=== PATIENT | female | born 2000 | race African-American/Black ===

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

== ENCOUNTER 2023-07-28 18:09 | Inpatient (IN) | payer SELFPAY ==
[2023-07-28] MEDS ORDERED: Sodium Chloride 0.9% 10 ML Syringe FLUSH PRN (19:33)
[2023-07-28] MEDS ORDERED: Tranexamic Acid IN NACL,ISO-OS 1,000 MG in Premix Bag 1 BAG IV PRN ×2 (19:33)
[2023-07-28] MEDS ORDERED: Misoprostol 200 MCG Tab PO PRN (19:33)
[2023-07-28] MEDS ORDERED: Sodium Chloride 0.9% 20 ML SDV IV PRN (19:33)
[2023-07-28] MEDS ORDERED: Lidocaine 1% 50 ML MDV INJECT PRN (19:33)
[2023-07-28] MEDS ORDERED: Methylergonovine 0.2 MG/1 ML Amp IM PRN ×2 (19:33→23:55)
[2023-07-28] MEDS ORDERED: Ondansetron 4 MG/2 ML SDV IVPUSH PRN ×4 (19:33→23:55)
[2023-07-28] MEDS ORDERED: Carboprost Tromethamine 250 MCG/1 mL Vial IM PRN (19:33)
[2023-07-28] MEDS ORDERED: Sodium Chloride 0.9% 2.5 ML Syringe FLUSH PRN (19:33)
[2023-07-28] MEDS ORDERED: Water For Irrigation,Sterile 1,000 ML Container IRR PRN (19:33)
[2023-07-28] MEDS ORDERED: Butorphanol 1 MG/ML SDV IVPUSH PRN (19:33)
[2023-07-28] MEDS ORDERED: Oxytocin/0.9 % Sodium Chloride 30 UNIT/500 ML BAG IV SCH (19:45)
[2023-07-28] MEDS: Lactated Ringers 1,000 ML IV SCH ×2 (19:54→21:36)
[2023-07-28 20:02] LABS: HEMATOCRIT 28.5 % (37.0-47.0); HEMOGLOBIN 9.3 g/dL (12.0-16.0); MEAN CORPUSCULAR HEMOGLOBIN 27.9 pg (28.0-32.0); MEAN CORPUSCULAR HGB CONC 32.6 g/dL (32.0-36.0); MEAN CORPUSCULAR VOLUME 85.6 fL (83.0-99.0); MEAN PLATELET VOLUME 9.8 fL (9.4-12.3); PLATELET COUNT,PLT 254 K/uL (150-400); RED BLOOD CELL COUNT 3.33 M/uL (4.10-5.30)
[2023-07-28] MEDS ORDERED: Bupivacaine 0.5% 10 ML SDV ONE ×4 (20:41→21:44)
[2023-07-28] MEDS ORDERED: Ropivacaine HCl/PF 200 ML ONE (20:41)
[2023-07-28] MEDS ORDERED: Phenylephrine HCl 0.5 MG/5 ML AMP ONE (20:41)
[2023-07-28] MEDS ORDERED: Phenylephrine HCl 0.5 MG/5 ML AMP IVPUSH PRN (21:05)
[2023-07-28] MEDS ORDERED: ePHEDrine 50 MG/ML SDV IVPUSH PRN ×3 (21:05→23:21)
[2023-07-28] MEDS ORDERED: Ropivacaine HCl/PF 400 MG in Premix Bag 1 BAG EPIDUR SCH (21:15)
[2023-07-28] MEDS ORDERED: Citric Acid/Sodium Citrate Solution 30 ML Cup PO ONE (21:37)
[2023-07-28] MEDS ORDERED: ceFAZolin 2 GM in Sodium Chloride 0.9% 50 ML IV ONE (21:37)
[2023-07-28] MEDS ORDERED: Ketorolac 30 MG/ML SDV ONE (21:39)
[2023-07-28] MEDS ORDERED: Bupivacaine 0.25% 30 ML SDV ONE (21:39)
[2023-07-28] MEDS ORDERED: Oxytocin 10 Units/1 ML SDV ONE (21:39)
[2023-07-28] MEDS ORDERED: fentaNYL 100 MCG/2 ML SDV ONE ×2 (21:39→22:25)
[2023-07-28] MEDS ORDERED: Ondansetron 4 MG/2 ML SDV ONE (21:39)
[2023-07-28] MEDS ORDERED: ceFAZolin 1 GM Vial ONE (21:39)
[2023-07-28] MEDS ORDERED: Ropivacaine 0.5% 5 MG/ML 30 ML SDV ONE (21:39)
[2023-07-28] MEDS ORDERED: EPINEPHrine 1 MG/1 ML Amp ONE ×2 (21:40→21:44)
[2023-07-28] MEDS ORDERED: Morphine PF 10 MG/10 ML SDV ONE (21:40)
[2023-07-28] MEDS ORDERED: Phenylephrine 1% 10 MG/ML SDV ONE (21:46)
[2023-07-28 22:02] LABS: APPEARANCE,URINE CLEAR; BILIRUBIN,URINE NEGATIVE (NEGATIVE); GLUCOSE,URINE NEGATIVE (NEGATIVE); KETONES,URINE NEGATIVE (NEGATIVE); LEUKOCYTE ESTERASE,URINE NEGATIVE (NEGATIVE); NITRITE,URINE POSITIVE (NEGATIVE); OCCULT BLOOD,URINE NEGATIVE (NEGATIVE); PROTEIN,URINE NEGATIVE (NEGATIVE); UROBILINOGEN,URINE 0.2 EU/dL (<2.0)
[2023-07-28 22:03] LABS: COLOR,URINE YELLOW
[2023-07-28 22:12] LABS: AMPHETAMINES SCREEN, URINE NEGATIVE (CUTOFF=500); BARBITURATE SCREEN,URINE NEGATIVE (CUTOFF=200); BENZODIAZEPINES SCREEN,URINE NEGATIVE (CUTOFF=150); BUPRENORPHINE SCREEN,URINE NEGATIVE (CUTOFF=10); METHADONE SCREEN, URINE NEGATIVE (CUTOFF=200); METHAMPHETAMINES SCREEN, URINE NEGATIVE (CUTOFF=500); OXYCODONE SCREEN,URINE NEGATIVE (CUT0FF=100); PCP SCREEN,URINE NEGATIVE (CUTOFF=25); THC SCREEN,URINE 20 NG/ML NEGATIVE (CUTOFF=50)
[2023-07-28] MEDS ORDERED: Tranexamic Acid 1,000 MG/10 ML Vial ONE (22:36)
[2023-07-28] MEDS ORDERED: Ferric Subsulfate Topical Soln 8 GM (8 ML) Bottle ONE (23:13)
[2023-07-28] MEDS ORDERED: droPERidol 5 MG/2 ML SDV IVPUSH PRN (23:21)
[2023-07-28] MEDS ORDERED: fentaNYL 50 MCG/ML SDV IVPUSH PRN (23:21)
[2023-07-28] MEDS ORDERED: HYDROmorphone 1 MG/ML Syringe IVPUSH PRN (23:21)
[2023-07-28] MEDS ORDERED: Albuterol 0.083% 2.5 MG/3 ML Neb Soln NEB PRN (23:21)
[2023-07-28] MEDS ORDERED: Metoclopramide 10 MG/2 ML SDV IVPUSH PRN (23:21)
[2023-07-28] MEDS ORDERED: fentaNYL 100 MCG/2 ML SDV IVPUSH PRN (23:21)
[2023-07-28] MEDS ORDERED: Morphine 2 MG/ML SYRINGE IVPUSH PRN (23:21)
[2023-07-28] MEDS ORDERED: diphenhydrAMINE 50 MG/ML SDV IVPUSH PRN ×2 (23:21→23:55)
[2023-07-28] MEDS ORDERED: Naloxone 0.4 MG/ML SDV IVPUSH PRN (23:21)
[2023-07-28] MEDS ORDERED: Lactated Ringers 1,000 ML IV SCH (23:45)
[2023-07-28] MEDS ORDERED: Misoprostol 200 MCG Tab RECTAL PRN (23:55)
[2023-07-28] MEDS ORDERED: Acetaminophen/oxyCODONE 325-5 MG Tab PO PRN (23:55)
[2023-07-28] MEDS ORDERED: Lanolin 100% Cream 7 GM Tube TOP PRN (23:55)
[2023-07-28] MEDS ORDERED: Bisacodyl 10 MG Supp RECTAL PRN (23:55)
[2023-07-28] MEDS ORDERED: Oxytocin 10 Units/1 ML SDV IM PRN (23:55)
[2023-07-29 00:03] LABS: PH,UMBILICAL ARTERIAL 7.201 (7.18-7.38); PH,UMBILICAL VENOUS 7.27 (7.25-7.45)
[2023-07-29] MEDS: Acetaminophen 1,000 MG in Premix Bag 1 BAG IV SCH ×4 (00:15→21:40)
[2023-07-29 06:03] LABS: HEMATOCRIT 26.5 % (37.0-47.0); HEMOGLOBIN 8.6 g/dL (12.0-16.0)
[2023-07-29] MEDS: Docusate Sodium 100 MG Cap PO SCH ×2 (09:23→21:37)
[2023-07-29] MEDS: Nitrofurantoin Monohydrate/Macrocrystalline 100 MG Cap PO SCH ×2 (09:23→21:37)
[2023-07-29] MEDS ORDERED: Sodium Ferric Gluconate Cmplex 125 MG in Sodium Chloride 0.9% 100 ML IV ONE (10:30)
[2023-07-29] MEDS: Ibuprofen 800 MG Tab PO PRN (11:26)
[2023-07-29 16:12] LABS: GROUP B STREP BY PCR NEGATIVE (NEGATIVE)
[2023-07-30] MEDS: Ibuprofen 800 MG Tab PO PRN ×2 (03:10→19:45)
[2023-07-30] MEDS: Acetaminophen/oxyCODONE 325-5 MG Tab PO PRN ×3 (04:19→17:49)
[2023-07-30] MEDS: Docusate Sodium 100 MG Cap PO SCH ×2 (10:06→21:01)
[2023-07-30] MEDS: Nitrofurantoin Monohydrate/Macrocrystalline 100 MG Cap PO SCH ×2 (10:07→21:01)
[2023-07-30] MEDS: Ferrous Sulfate 325 MG Tab PO SCH (17:51)
[2023-07-30] MEDS ORDERED: HYDROmorphone 2 MG/ML Syringe IVPUSH PRN (18:08)
[2023-07-31] MEDS: Acetaminophen/oxyCODONE 325-5 MG Tab PO PRN ×3 (03:13→16:07)
[2023-07-31] MEDS: Ibuprofen 800 MG Tab PO PRN (03:56)
[2023-07-31] MEDS: Docusate Sodium 100 MG Cap PO SCH (08:25)
[2023-07-31] MEDS: Ferrous Sulfate 325 MG Tab PO SCH (08:25)
[2023-07-31] MEDS: Nitrofurantoin Monohydrate/Macrocrystalline 100 MG Cap PO SCH (08:25)
== END 2023-07-31 17:00 | disposition home or self-care (01) | DRG 788 ==
LOC: MW.OBCHECK 18:09 → MW.OB 18:09 → MW.OBCHECK 18:52 → OBSVTOIN 20:25 → MW.OB 07-29 03:10
PROVIDERS: ADMIT Obstetrics & Gynecology; ATTEND Obstetrics & Gynecology
PROC: 10D00Z1 Extraction of Products of Conception, Low, Open Approach (ICD-10-PCS; principal; 2023-07-28 22:00)
DX: O42.02 Full-term premature rupture of membranes, onset of labor within 24 hours of rupture (principal); O99.02 Anemia complicating childbirth; D64.9 Anemia, unspecified; O64.1XX0 Obstructed labor due to breech presentation, not applicable or unspecified; Z37.0 Single live birth; Z3A.37 37 weeks gestation of pregnancy
CPT/HCPCS: 36415; 51702; 59025; 80305-QW; 81003; 82803; 83036; 84112; 85014; 85018; 85027; 86592; 86850; 86900; 86901; 87086; 87653; A9270-GY; J0131; J0171; J0665; J0690; J1100; J1885; J2274; J2371; J2405; J2590; J2795; J2916; J3010; J3490; J7120